=== PATIENT | female | born 1965 ===

== ENCOUNTER → 2021-10-08 16:39 | Outpatient (CLI) | payer OTHER, MEDICAID, SELFPAY ==
[2021-10-09 18:27] LABS: Alanine Aminotransferase 13 IU/L (<35); Albumin 4.7 g/dL (3.5-5.0); Albumin Globulin Ratio 1.5 (1.0-2.8); Alkaline Phosphatase 76 U/L (38-126); Aspartate Aminotransferase 25 IU/L (14-36); BUN Creatinine Ratio 13.7 (6-22); Bilirubin Total 1.1 mg/dL (0.2-1.3); Blood Urea Nitrogen 10 mg/dL (7-17); Calcium 10.3 mg/dL (8.4-10.2); Carbon Dioxide 33 mmol/L (22-32); Chloride 98 mmol/L (98-107); Estimated Glomerular Filt Rate > 60.0 mL/min (>60); Globulin 3.2 g/dL (1.7-4.1); Glucose 103 mg/dL (70-100); HEMOLYSIS < 15 (0-50); Potassium 3.9 mmol/L (3.4-5.1); Sodium 136 mmol/L (137-145); Total Protein 7.9 g/dL (6.3-8.2)
[2021-10-09 18:29] LABS: Add Manual Diff / Slide Review NO; Basophils Absolute Auto 0 /uL (0-100); Basophils Percent Auto 0.4 % (0-2); Eosinophils Absolute Auto 100 /uL (0-450); Eosinophils Percent Auto 0.7 % (2-4); Hematocrit 38.1 % (36-46); Hemoglobin 12.9 g/dL (12.0-16.0); Lymphocytes Absolute Auto 1700 /uL (1100-4500); Mean Corpuscular HGB Conc 33.8 % (30-36); Mean Corpuscular Hemoglobin 32.3 PG (26-34); Mean Corpuscular Volume 95.4 fL (80-100); Monocytes Absolute Auto 900 /uL (0-900); Monocytes Percent Auto 10.8 % (3-14); Neutrophils Absolute Auto 5300 /uL (1500-7000); Neutrophils Percent Auto 67.1 % (50-75); Platelet Count 430 X10^3/uL (150-400); Red Cell Distribution Width 13.7 % (11.6-14.8); White Blood Cell Count 7.9 X10^3/uL (4.5-11.0)
[2021-10-09 19:30] LABS: Ethanol (ETOH) < 10 mg/dL
== END ==
PROVIDERS: PCP Family Medicine; Referring Provider Physician Assistant; Visit Provider Physician Assistant
DX: R25.1 Tremor, unspecified
CPT/HCPCS: 80053; 80305; 80320; 85018; 85025

== ENCOUNTER 2022-03-16 11:22 | Emergency (ER) | payer OTHER, MEDICAID, SELFPAY ==
[2022-03-16 11:26] VITALS: BP 137/79; PULSE 80; RESP 18; TEMP 36.4; O2SAT 97; BMI 28.8
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
[2022-03-16 13:42] LABS: UR Morphine/Opiate cutoff 300 Negative (Negative); Ur Creatinine Normal (Normal); Ur Specific Gravity Normal (Normal); Urine Amphetamines Negative (Negative); Urine Barbiturates Negative (Negative); Urine Benzodiazepines Positive (Negative); Urine Cocaine Negative (Negative); Urine MDMA Negative (Negative); Urine Methadone Negative (Negative); Urine Methamphetamines Negative (Negative); Urine Oxycodone Negative (Negative); Urine Phencyclidine Negative (Negative); Urine Tetrahydrocannabinol Positive (Negative); Urine Tricyclic Antidepressant Negative (Negative); Urine pH Normal (Normal)
[2022-03-16 13:53] LABS: Add Manual Diff / Slide Review NO; Basophils Absolute Auto 0 /uL (0-100); Basophils Percent Auto 0.6 % (0-2); Eosinophils Absolute Auto 100 /uL (0-450); Eosinophils Percent Auto 1.3 % (2-4); Hematocrit 36.2 % (36-46); Hemoglobin 12.3 g/dL (12.0-16.0); Lymphocytes Absolute Auto 1600 /uL (1100-4500); Lymphocytes Percent Auto 28.8 % (25-40); Mean Corpuscular HGB Conc 34.1 % (30-36); Mean Corpuscular Hemoglobin 31.9 PG (26-34); Mean Corpuscular Volume 93.5 fL (80-100); Monocytes Absolute Auto 400 /uL (0-900); Monocytes Percent Auto 6.7 % (3-14); Neutrophils Absolute Auto 3400 /uL (1500-7000); Neutrophils Percent Auto 62.6 % (50-75); Platelet Count 305 X10^3/uL (150-400); Red Blood Cell Count 3.87 X10^6/uL (4.0-5.2); Red Cell Distribution Width 13.1 % (11.6-14.8); White Blood Cell Count 5.4 X10^3/uL (4.5-11.0)
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
[2022-03-16 14:12] LABS: Acetaminophen < 10 ug/mL (10-30); Alanine Aminotransferase 13 IU/L (<35); Albumin 4.6 g/dL (3.5-5.0); Albumin Globulin Ratio 1.5 (1.0-2.8); Alkaline Phosphatase 81 U/L (38-126); Aspartate Aminotransferase 30 IU/L (14-36); BUN Creatinine Ratio 14.9 (6-22); Bilirubin Total 0.7 mg/dL (0.2-1.3); Blood Urea Nitrogen 10 mg/dL (7-17); Calcium 9.6 mg/dL (8.4-10.2); Carbon Dioxide 29 mmol/L (22-32); Chloride 106 mmol/L (98-107); Estimated Glomerular Filt Rate > 60 mL/min (>60); Ethanol (ETOH) < 10 mg/dL; Glucose 101 mg/dL (70-100); HEMOLYSIS < 15 (0-50); Potassium 4.6 mmol/L (3.4-5.1); Salicylate < 1.0 mg/dL (<20); Sodium 141 mmol/L (137-145); Total Protein 7.6 g/dL (6.3-8.2)
[2022-03-16 14:28] LABS: Free T4, Direct Thyroxine 1.12 ng/dL (0.78-2.19)
[2022-03-16 14:42] LABS: Thyroid Stimulating Hormone 0.606 uIU/mL (0.47-4.68)
[2022-03-16 15:27] LABS: Lithium 0.9 mmol/L (0.6-1.2)
[2022-03-16] MEDS: ACETAMINOPHEN 325 MG TABLET 975 MG PO (15:37)
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
== END 2022-03-16 16:41 | disposition home or self-care (01) ==
PROVIDERS: Emergency Provider Emergency Medicine; PCP Physician Assistant
DX: S80.812A Abrasion, left lower leg, initial encounter (principal); S80.811A Abrasion, right lower leg, initial encounter
CPT/HCPCS: 36415; 80053; 80178; 80305; 80320; 80329; 81003; 81025; 84439; 84443; 85025; 99283; 99284; G0480

== ENCOUNTER 2022-05-22 20:50 | Emergency (ER) | payer OTHER, MEDICAID, SELFPAY ==
[2022-05-22 20:57] VITALS: BP 121/79; PULSE 84; RESP 16; TEMP 36.6; O2SAT 99; BMI 29.0
--- NOTE | 2022-05-22 21:10 | DI.CT.S_ITS ---
PROCEDURE: CT HEAD/BRAIN WO CON INDICATIONS: slurred words TECHNIQUE: Noncontrast 4.5 mm thick angled axial sections acquired from the foramen magnum to the vertex, with coronal and sagittal reformats. For radiation dose reduction, the following was used: automated exposure control, adjustment of mA and/or kV according to patient size. COMPARISON: None. FINDINGS: Image quality: Excellent. CSF spaces: Basal cisterns are patent. No extra-axial fluid collections. Ventricles are normal in size and shape. Brain: No midline shift. No intracranial masses or hemorrhage. Pitts-white matter interface is normal. Skull and face: Calvarium and visualized facial bones are intact, without suspicious lesions. Sinuses: Visualized sinuses demonstrate mucosal thickening within the left maxillary sinus posteriorly. IMPRESSION: 1. No acute intracranial abnormality. Dictated by: Gus Meier M.D. on 05/22/2022 at 21:31 Approved by: Gus Meier M.D. on 05/22/2022 at 21:33
[2022-05-22 21:38] LABS: Add Manual Diff / Slide Review NO; Basophils Absolute Auto 0 /uL (0-100); Basophils Percent Auto 0.5 % (0-2); Eosinophils Absolute Auto 100 /uL (0-450); Eosinophils Percent Auto 2.1 % (2-4); Hematocrit 35.9 % (36-46); Hemoglobin 12.1 g/dL (12.0-16.0); Lymphocytes Absolute Auto 2300 /uL (1100-4500); Lymphocytes Percent Auto 34.5 % (25-40); Mean Corpuscular HGB Conc 33.7 % (30-36); Mean Corpuscular Hemoglobin 31.9 PG (26-34); Mean Corpuscular Volume 94.5 fL (80-100); Monocytes Absolute Auto 700 /uL (0-900); Monocytes Percent Auto 10.6 % (3-14); Neutrophils Absolute Auto 3500 /uL (1500-7000); Neutrophils Percent Auto 52.3 % (50-75); Platelet Count 325 X10^3/uL (150-400); White Blood Cell Count 6.8 X10^3/uL (4.5-11.0)
[2022-05-22 21:39] LABS: Alanine Aminotransferase 14 IU/L (<35); Albumin 4.6 g/dL (3.5-5.0); Albumin Globulin Ratio 1.5 (1.0-2.8); Alkaline Phosphatase 77 U/L (38-126); Aspartate Aminotransferase 21 IU/L (14-36); Bilirubin Total 0.3 mg/dL (0.2-1.3); Blood Urea Nitrogen 13 mg/dL (7-17); Calcium 9.3 mg/dL (8.4-10.2); Carbon Dioxide 27 mmol/L (22-32); Chloride 103 mmol/L (98-107); Estimated Glomerular Filt Rate > 60 mL/min (>60); Globulin 3.1 g/dL (1.7-4.1); Glucose 78 mg/dL (70-100); HEMOLYSIS < 15 (0-50); Lipase 152 U/L (23-300); Sodium 140 mmol/L (137-145); Total Protein 7.7 g/dL (6.3-8.2)
[2022-05-22 21:45] VITALS: PULSE 99; RESP 20; O2SAT 97
[2022-05-22 22:00] LABS: UR Morphine/Opiate cutoff 300 Negative (Negative); Ur Creatinine Normal (Normal); Ur Specific Gravity Normal (Normal); Urine Amphetamines Negative (Negative); Urine Barbiturates Negative (Negative); Urine Benzodiazepines Positive (Negative); Urine Cocaine Negative (Negative); Urine MDMA Negative (Negative); Urine Methadone Negative (Negative); Urine Methamphetamines Negative (Negative); Urine Oxycodone Negative (Negative); Urine Phencyclidine Negative (Negative); Urine Tetrahydrocannabinol Negative (Negative); Urine Tricyclic Antidepressant Negative (Negative); Urine pH Normal (Normal)
[2022-05-22 22:01] LABS: COVID19 -Nasal RAPID Negative (Negative)
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
[2022-05-22 22:31] LABS: Ethanol (ETOH) 161 mg/dL
[2022-05-22 22:59] LABS: Lithium 1.2 mmol/L (0.6-1.2)
[2022-05-22 23:32] VITALS: BP 119/78; PULSE 90; RESP 20; O2SAT 98
== END 2022-05-22 23:34 | disposition home or self-care (01) ==
PROVIDERS: Emergency Provider Emergency Medicine; PCP Physician Assistant
DX: F10.129 Alcohol abuse with intoxication, unspecified (principal); Y90.6 Blood alcohol level of 120-199 mg/100 ml; Z20.822 Contact with and (suspected) exposure to COVID-19
CPT/HCPCS: 70450; 80053; 80178; 80305; 80320; 83690; 85025; 87635; 99282; 99284; C9803

== ENCOUNTER 2022-05-28 14:23 | Emergency (ER) | payer OTHER, MEDICAID, SELFPAY ==
[2022-05-28] VITALS (12 sets, daily range): BP systolic 106–150; BP diastolic 55–87; PULSE 73–106; RESP 15; TEMP 36.1; O2SAT 90–99; BMI 29.5
--- NOTE | 2022-05-28 15:15 | DI.RAD.S_ITS ---
PROCEDURE: XR CHEST 1V INDICATIONS: chest pain TECHNIQUE: One view of the chest was acquired. COMPARISON: None. FINDINGS: Surgical changes and devices: None. Lungs and pleura: Lungs are clear. No pleural effusions or pneumothorax. Mediastinum: Mediastinal contours appear normal. Heart size is normal. Bones and chest wall: No suspicious bony lesions. Overlying soft tissues appear unremarkable. IMPRESSION: No acute cardiopulmonary process demonstrated radiographically. Dictated by: Janes Salvador M.D. on 05/28/2022 at 15:40 Approved by: Janes Salvador M.D. on 05/28/2022 at 15:40
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
[2022-05-28 18:53] LABS: Add Manual Diff / Slide Review NO; Basophils Absolute Auto 0 /uL (0-100); Basophils Percent Auto 0.6 % (0-2); Eosinophils Absolute Auto 200 /uL (0-450); Eosinophils Percent Auto 2.4 % (2-4); Hematocrit 37.1 % (36-46); Hemoglobin 12.5 g/dL (12.0-16.0); Lymphocytes Absolute Auto 1700 /uL (1100-4500); Lymphocytes Percent Auto 24.9 % (25-40); Mean Corpuscular HGB Conc 33.6 % (30-36); Mean Corpuscular Hemoglobin 31.9 PG (26-34); Monocytes Absolute Auto 700 /uL (0-900); Monocytes Percent Auto 9.6 % (3-14); Neutrophils Absolute Auto 4300 /uL (1500-7000); Neutrophils Percent Auto 62.5 % (50-75); Platelet Count 371 X10^3/uL (150-400); Red Blood Cell Count 3.91 X10^6/uL (4.0-5.2); Red Cell Distribution Width 14.3 % (11.6-14.8); White Blood Cell Count 6.8 X10^3/uL (4.5-11.0)
--- NOTE | 2022-05-28 19:06 | DI.CT.S_ITS ---
PROCEDURE: CT HEAD/BRAIN WO CON INDICATIONS: recent falls, ongoing dizziness TECHNIQUE: Noncontrast 4.5 mm thick angled axial sections acquired from the foramen magnum to the vertex, with coronal and sagittal reformats. For radiation dose reduction, the following was used: automated exposure control, adjustment of mA and/or kV according to patient size. COMPARISON: [facility], CT, CT HEAD/BRAIN WO CON, 05/22/2022, 21:19. FINDINGS: Image quality: Excellent. CSF spaces: Basal cisterns are patent. No extra-axial fluid collections. Ventricles are normal in size and shape. Brain: No midline shift. No intracranial masses or hemorrhage. Pitts-white matter interface is normal. Skull and face: Calvarium and visualized facial bones are intact, without suspicious lesions. Sinuses: Visualized sinuses and mastoids are clear. IMPRESSION: No acute intracranial abnormality. Dictated by: Tony Caban M.D. on 05/28/2022 at 19:46 Approved by: Tony Caban M.D. on 05/28/2022 at 19:47
--- NOTE | 2022-05-28 19:11 | DI.CT.S_ITS ---
PROCEDURE: CT CERVICAL SPINE WO CON INDICATIONS: falls, etoh TECHNIQUE: Noncontrast 3 mm thick sections acquired from the skull base to the T4 level. Sagittal and coronal reformats were then constructed. For radiation dose reduction, the following was used: automated exposure control, adjustment of mA and/or kV according to patient size. COMPARISON: None. FINDINGS: Image quality: Excellent. Bones: No fractures or dislocations. Visualized superior ribs are intact. There is mild 2 mm grade 1 retrolisthesis of C5 on C6. Multilevel disc space narrowing degenerative endplate changes are seen. There is multilevel uncovertebral joint hypertrophy. Soft tissues: Prevertebral soft tissues are normal in thickness. No paravertebral hematomas. No apical pneumothoraces. A subcentimeter right thyroid nodule is incidentally noted, which requires no dedicated imaging follow-up. IMPRESSION: No acute cervical spine fracture or subluxation. Dictated by: Tony Caban M.D. on 05/28/2022 at 19:48 Approved by: Tony Cabna M.D. on 05/28/2022 at 19:50
--- NOTE | 2022-05-28 19:11 | DI.RAD.S_ITS ---
PROCEDURE: XR HIP W PEL IF DONE LT 2V INDICATIONS: falls, left hip pain TECHNIQUE: AP pelvis with lateral view of the left hip. COMPARISON: None. FINDINGS: Bones: No acute fractures or dislocations. Pelvic ring appears intact. No suspicious bony lesions. Soft tissues: The visualized bowel gas pattern is normal. No suspicious soft tissue calcifications. Degenerative changes are seen at the lower lumbar spine. IMPRESSION: No acute osseous abnormality. If clinical suspicion and/or symptoms persist, additional imaging with repeat plain films, or advanced imaging (e.g. CT, MRI) may be helpful for further assessment. Dictated by: Tony Caban M.D. on 05/28/2022 at 19:52 Approved by: Tony Caban M.D. on 05/28/2022 at 19:52
--- NOTE | 2022-05-28 19:13 | ED.DIZZY ---
HPI - Dizziness General Chief Complaint: Dizziness Stated Complaint: Body aches/dizzy Time Seen by Provider: 05/28/22 15:15 Source: patient Mode of arrival: Ambulatory History of Present Illness HPI Narrative: 56-year-old female nonsmoker with history of alcohol abuse, vitamin deficiencies, bipolar, mood disorder presents with a chief complaint of generalized body aches and dizziness. She is not a great historian but states that she is been having symptoms for about a year or so. She states that she is frequently dizzy and has a shuffling gait which has been present for quite some time. She states that she has been shaky and unsteady for over a year as well. She states she is been taking her medications as directed and stopped drinking in February, however she was here about 1 week ago and was found to have an alcohol level of 161. She denies any new head injury but is, as stated not a great historian. She denies any chest pain or shortness of breath. She has no nausea, vomiting or diarrhea. She states that for about the past week she is been having left hip pain. She denies any trouble controlling bowel or bladder. She denies any lower extremity weakness Related Data Home Medications Medication Instructions Recorded Confirmed albuterol sulfate 90 mcg/actuation 90 mcg inhalation DIRECTED 01/19/18 10/17/21 aerosol inhaler asthma diazepam 10 mg tablet 10 mg PO BID PRN 01/17/21 10/17/21 fluoxetine 20 mg capsule 20 mg PO DAILY 01/17/21 10/17/21 sennosides 8.6 mg tablet (senna) 8.6 mg PO DAILY PRN 01/17/21 10/17/21 trazodone 50 mg tablet 50 mg PO BEDTIME PRN 01/17/21 10/17/21 lithium carbonate 900 mg PO 10/08/21 10/17/21 Allergies Allergy/AdvReac Type Severity Reaction Status Date / Time No Known Drug Allergies Allergy Verified 05/28/22 14:37 pollen Allergy Mild Uncoded 05/22/22 21:00 Review of Systems Review of Systems Narrative: GENERAL: See HPI HEENT: Denies sinus pain, ear pain, sore throat, difficulty swallowing, dizziness. RESPIRATORY: Denies dyspnea, cough, wheezing, hemoptysis, sputum. CARDIOVASCULAR: Denies chest pain, palpitations, orthopnea, edema, GASTROINTESTINAL: Denies nausea, vomiting, abdominal pain, diarrhea, constipation, melena. : Denies dysuria, frequency, incontinence, hematuria, urinary retention. MUSCULOSKELETAL: See HPI SKIN: Denies rash, skin lesions, or other NEUROLOGIC: See HPI PSYCHIATRIC: No concerning psychosocial issues. 12 point review of systems is negative except for those stated above Patient History Medical History Ruptured appendicitis Surgical History H/O knee surgery History of appendectomy S/P scar revision Social History household members: family Smoking Status: Never smoker Smoking Status: Never smoker alcohol intake frequency: holidays/special occasions only Substance Use Type: marijuana Exam Narrative Exam Narrative: GENERAL: [56] year old patient appears stated age. Well-developed patient, in mild distress. GCS 14 (confusion) HEAD: Atraumatic. Normocephalic. EYES: Pupils equal round and reactive. Extraocular motions intact. No scleral icterus. No injection or drainage. ENT: Nose without bleeding, purulent drainage. Throat without erythema, tonsillar hypertrophy or exudate. Airway patent. NECK: Trachea midline. Non tender CARDIOVASCULAR: Regular rate and rhythm without murmurs, gallops, or rubs. RESPIRATORY: Clear to auscultation. Breath sounds equal bilaterally. No wheezes, rales, or rhonchi. GASTROINTESTINAL: Abdomen soft, non-tender, nondistended. EXTREMITIES: No edema or joint tenderness. BACK: Nontender without deformity or crepitance. No flank tenderness. NEURO: AOx3. Cranial nerves 2-12 grossly intact SKIN: No rash or erythema of visible areas Initial Vital Signs Initial Vital Signs: Vital Signs Temperature 97.0 F L 05/28/22 14:37 Pulse Rate 106 H 05/28/22 14:37 Respiratory Rate 15 05/28/22 14:37 Blood Pressure 118/71 05/28/22 14:37 Pulse Oximetry 97 05/28/22 14:37 Oxygen Delivery Method 05/28/22 14:37 Course Orders Ordered: ED Orders 05/28/22 19:52 COVID19 -Nasal RAPID/Pre-Proc Stat 05/28/22 21:08 Urine Drug Screen, Rapid Stat Discontinued Medications Thiamine HCl 200 mg/ Sodium (Chloride) 102 mls @ 408 mls/hr IV NOW ONE Stop: 05/28/22 19:13 Last Infusion: 05/28/22 20:23 Dose: 0 mls/hr Documented By: Admin: 05/28/22 19:48 Dose: 408 mls/hr Documented By: NR Vital Signs Vital signs: Vital Signs - 8 hr 05/28/22 20:30 05/28/22 21:00 05/28/22 21:07 Pulse Rate 81 78 73 Blood Pressure Pulse Oximetry 94 98 96 05/28/22 21:07 05/28/22 21:30 05/28/22 21:30 Pulse Rate 75 Blood Pressure 133/65 118/71 Pulse Oximetry 99 05/28/22 21:41 05/28/22 21:41 Pulse Rate 81 Blood Pressure 106/70 Pulse Oximetry 98 MDM - Dizziness Lab Data Result diagrams: 05/28/22 18:40 05/28/22 18:40 Labs: Lab Results 05/28/22 05/28/22 05/28/22 Range/Units 18:40 18:40 18:40 WBC 6.8 (4.5-11.0) X10^3/uL RBC 3.91 L (4.0-5.2) X10^6/uL Hgb 12.5 (12.0-16.0) g/dL Hct 37.1 (36-46) % MCV 95.0 (80-100) fL MCH 31.9 (26-34) PG MCHC 33.6 (30-36) % RDW 14.3 (11.6-14.8) % Plt Count 371 (150-400) X10^3/uL Neut % (Auto) 62.5 (50-75) % Lymph % (Auto) 24.9 L (25-40) % [place] % (Auto) 9.6 (3-14) % Eos % (Auto) 2.4 (2-4) % Baso % (Auto) 0.6 (0-2) % Neut # (Auto) 4300 (0955-0585) /uL Lymph # (Auto) 1700 (9791-4257) /uL [place] # (Auto) 700 (0-900) /uL Eos # (Auto) 200 (0-450) /uL Baso # (Auto) 0 (0-100) /uL Sodium 135 L (137-145) mmol/L Potassium 3.9 (3.4-5.1) mmol/L Chloride 102 (98-107) mmol/L Carbon Dioxide 26 (22-32) mmol/L BUN 13 (7-17) mg/dL Creatinine 0.69 (0.52-1.04) mg/dL Estimated GFR > 60 (>60) mL/min BUN/Creatinine Ratio 18.8 (6-22) Glucose 117 H (70-100) mg/dL Calcium 10.0 (8.4-10.2) mg/dL Total Bilirubin 0.8 (0.2-1.3) mg/dL AST 21 (14-36) IU/L ALT 13 (<35) IU/L Alkaline Phosphatase 88 (38-126) U/L Total Creatine Kinase 55 (30-135) U/L CK-MB (CK-2) TNP CK-MB (CK-2) Rel Index TNP Troponin I < 0.012 (0.01-0.034) ng/mL Total Protein 7.7 (6.3-8.2) g/dL Albumin 4.5 (3.5-5.0) g/dL Globulin 3.2 (1.7-4.1) g/dL Albumin/Globulin Ratio 1.4 (1.0-2.8) Lipase 76 (23-300) U/L U Opiates 300ng/mL cut (Negative) Ur Oxycodone Screen (Negative) Urine Methadone Screen (Negative) Ur Barbiturates Screen (Negative) U Tricyclic Antidepress (Negative) Ur Phencyclidine Scrn (Negative) Ur Amphetamines Screen (Negative) U Methamphetamines Scrn (Negative) Ur MDMA Scrn (Ecstasy) (Negative) U Benzodiazepines Scrn (Negative) [place] (0.6-1.2) mmol/L Urine Cocaine Screen (Negative) U Marijuana (THC) Screen (Negative) Ethyl Alcohol < 10 ( - 10) mg/dL SARS-CoV-2 (PCR) (Negative) 05/28/22 05/28/22 05/28/22 Range/Units 18:40 19:52 21:08 WBC (4.5-11.0) X10^3/uL RBC (4.0-5.2) X10^6/uL Hgb (12.0-16.0) g/dL Hct (36-46) % MCV (80-100) fL MCH (26-34) PG MCHC (30-36) % RDW (11.6-14.8) % Plt Count (150-400) X10^3/uL Neut % (Auto) (50-75) % Lymph % (Auto) (25-40) % [place] % (Auto) (3-14) % Eos % (Auto) (2-4) % Baso % (Auto) (0-2) % Neut # (Auto) (1532-5924) /uL Lymph # (Auto) (5891-8158) /uL [place] # (Auto) (0-900) /uL Eos # (Auto) (0-450) /uL Baso # (Auto) (0-100) /uL Sodium (137-145) mmol/L Potassium (3.4-5.1) mmol/L Chloride (98-107) mmol/L Carbon Dioxide (22-32) mmol/L BUN (7-17) mg/dL Creatinine (0.52-1.04) mg/dL Estimated GFR (>60) mL/min BUN/Creatinine Ratio (6-22) Glucose (70-100) mg/dL Calcium (8.4-10.2) mg/dL Total Bilirubin (0.2-1.3) mg/dL AST (14-36) IU/L ALT (<35) IU/L Alkaline Phosphatase (38-126) U/L Total Creatine Kinase (30-135) U/L CK-MB (CK-2) CK-MB (CK-2) Rel Index Troponin I (0.01-0.034) ng/mL Total Protein (6.3-8.2) g/dL Albumin (3.5-5.0) g/dL Globulin (1.7-4.1) g/dL Albumin/Globulin Ratio (1.0-2.8) Lipase (23-300) U/L U Opiates 300ng/mL cut Negative (Negative) Ur Oxycodone Screen Negative (Negative) Urine Methadone Screen Negative (Negative) Ur Barbiturates Screen Negative (Negative) U Tricyclic Antidepress Negative (Negative) Ur Phencyclidine Scrn Negative (Negative) Ur Amphetamines Screen Negative (Negative) U Methamphetamines Scrn Positive H (Negative) Ur MDMA Scrn (Ecstasy) Negative (Negative) U Benzodiazepines Scrn Positive H (Negative) [place] 1.4 H (0.6-1.2) mmol/L Urine Cocaine Screen Negative (Negative) U Marijuana (THC) Screen Negative (Negative) Ethyl Alcohol ( - 10) mg/dL SARS-CoV-2 (PCR) Negative (Negative) Urine Dip Bedside Urine Glucose Negative Bedside Urine Bilirubin - Negative Bedside Urine Ketone - Negative Urine Specific [place] 1.010 Bedside Urine Occult Blood - Negative Bedside Urine pH 7.5 Bedside Urine Protein - Negative Bedside Urine Urobilinogen - Negative Bedside Urine Nitrite - Negative Bedside Urine Leukocytes - Negative Esterase Imaging Data CT scan - head: Radiologist's Impression: Close Hip X-Ray (Signed) Tony Caban - 05/28/[address] (Signed) Tony Caban - 05/28/[address] (Signed) Tony Caban - 05/28/22 Chest X-Ray (Signed) Janes Salvador - 05/28/[address] (Signed) Gus Meier - 05/22/22 Ribs X-Ray 10/08/21 DI Result XR ribs LT min 3V w CXR1V 10/08/21 Telemetry Strips 01/19/18 Launch?[place] [address] CT Scan Report Signed Patient: Brenda Garcia MR#: [id number] : 1965 Acct:[id number] Age/Sex: 56 / F Date of Service: 05/28/22 Loc: ED Accession Number: [id number] ?? Procedure: CT head/brain wo con Ordering Provider: Avtar Silveira D.O. PROCEDURE:? CT HEAD/BRAIN WO CON ? INDICATIONS:? recent falls, ongoing dizziness ? TECHNIQUE:? Noncontrast 4.5 mm thick angled axial sections acquired from the foramen magnum to the vertex, with coronal and sagittal reformats.? For radiation dose reduction, the following was used:? automated exposure control, adjustment of mA and/or kV according to patient size.? ? COMPARISON:[facility], CT, CT HEAD/BRAIN WO CON, 05/22/2022, 21:19. ? FINDINGS:? Image quality:? Excellent.? ? CSF spaces:? Basal cisterns are patent.? No extra-axial fluid collections.? Ventricles are normal in size and shape.? ? Brain:? No midline shift.? No intracranial masses or hemorrhage.? Pitts-white matter interface is normal.? ? Skull and face:? Calvarium and visualized facial bones are intact, without suspicious lesions.? ? Sinuses:? Visualized sinuses and mastoids are clear.? ? IMPRESSION:? No acute intracranial abnormality. ? ? Dictated by: Tony Caban M.D. on 05/28/2022 at 19:46 ? ? Approved by: Tony Caban M.D. on 05/28/2022 at 19:47 ? CT - cervical spine: Radiologist's Impression: [place] [address] CT Scan Report Signed Patient: Brenda Garcia MR#: [id number] : 1965 Acct:[id number] Age/Sex: 56 / F Date of Service: 05/28/22 Loc: ED Accession Number: [id number] ?? Procedure: CT cervical spine wo con Ordering Provider: Avtar Silveira D.O. PROCEDURE:? CT CERVICAL SPINE WO CON ? INDICATIONS:? falls, etoh ? TECHNIQUE:? Noncontrast 3 mm thick sections acquired from the skull base to the T4 level.? Sagittal and coronal reformats were then constructed.? For radiation dose reduction, the following was used:? automated exposure control, adjustment of mA and/or kV according to patient size.? ? COMPARISON:? None. ? FINDINGS:? Image quality:? Excellent.? ? Bones:? No fractures or dislocations.? Visualized superior ribs are intact.? There is mild 2 mm grade 1 retrolisthesis of C5 on C6.? Multilevel disc space narrowing degenerative endplate changes are seen.? There is multilevel uncovertebral joint hypertrophy. ? Soft tissues:? Prevertebral soft tissues are normal in thickness.? No paravertebral hematomas.? No apical pneumothoraces.? A subcentimeter right thyroid nodule is incidentally noted, which requires no dedicated imaging follow-up. ? ? IMPRESSION:? No acute cervical spine fracture or subluxation. ? ? ? Dictated by: Tony Caban M.D. on 05/28/2022 at 19:48 ? ? Approved by: Tony Caban M.D. on 05/28/2022 at 19:50 ? Chest x-ray: Radiologist's Impression: [address] [address] [address] Scan Report Signed Patient: Brenda Garcia MR#: [id number] : 1965 Acct:[id number] Age/Sex: 56 / F Date of Service: 05/28/22 Loc: ED Accession Number: [id number] ?? Procedure: CT cervical spine wo con Ordering Provider: Avtar Silveira D.O. PROCEDURE:? CT CERVICAL SPINE WO CON ? INDICATIONS:? falls, etoh ? TECHNIQUE:? Noncontrast 3 mm thick sections acquired from the skull base to the T4 level.? Sagittal and coronal reformats were then constructed.? For radiation dose reduction, the following was used:? automated exposure control, adjustment of mA and/or kV according to patient size.? ? COMPARISON:? None. ? FINDINGS:? Image quality:? Excellent.? ? Bones:? No fractures or dislocations.? Visualized superior ribs are intact.? There is mild 2 mm grade 1 retrolisthesis of C5 on C6.? Multilevel disc space narrowing degenerative endplate changes are seen.? There is multilevel uncovertebral joint hypertrophy. ? Soft tissues:? Prevertebral soft tissues are normal in thickness.? No paravertebral hematomas.? No apical pneumothoraces.? A subcentimeter right thyroid nodule is incidentally noted, which requires no dedicated imaging follow-up. ? ? IMPRESSION:? No acute cervical spine fracture or subluxation. ? ? ? Dictated by: Tony Caban M.D. on 05/28/2022 at 19:48 ? ? Approved by: Tony Caban M.D. on 05/28/2022 at 19:50 ? MDM Narrative Medical decision making narrative: Multiple etiologies for patient's symptoms considered including: [Electrolyte abnormality versus anemia versus subdural hematoma versus other] Patient's symptoms improved over duration of stay with above-stated therapies. Findings and discharge diagnosis discussed with patient/family followed by verbalization of understanding Return precautions discussed with patient/family whom verbalize understanding. Discharge Plan Departure Patient Disposition: Home Clinical Impression: Dizziness Instructions: DI for Dizziness-Nonvertigo Activity Restrictions/Additional Instructions: *You have been diagnosed with [acute on chronic dizziness] *What to do: *Please continue to take your regular medications as directed. [ ] New medication prescriptions sent to your pharmacy: [ ] [ ] New medication written as a paper prescription [x] No new medications given *Please follow up with your primary care provider in 2-3 days, call for an appointment. Let them know you were seen in the Emergency Department and that we ask that you be seen in follow up. We will electronically transmit a record of today's note if your PCP is in our system *Return to Emergency Department if you should have any new, worsening or concerning symptoms, such as [fever greater than 101 F, shaking chills, worsening pain, persistent vomiting or other bothersome symptoms] Prescriptions: No Action albuterol sulfate [Ventolin HFA] 90 mcg/actuation HFA aerosol inhaler 90 mcg Inhalation DIRECTED trazodone 50 mg tablet 50 mg PO BEDTIME PRN sennosides [senna] 8.6 mg tablet 8.6 mg PO DAILY PRN diazepam 10 mg tablet 10 mg PO BID PRN fluoxetine 20 mg capsule 20 mg PO DAILY lithium carbonate 900 mg PO Rx Instructions: 600 morning 300 at night Visit Report Forms: Patient Portal/API
[2022-05-28 19:16] LABS: Alanine Aminotransferase 13 IU/L (<35); Albumin 4.5 g/dL (3.5-5.0); Albumin Globulin Ratio 1.4 (1.0-2.8); Alkaline Phosphatase 88 U/L (38-126); Aspartate Aminotransferase 21 IU/L (14-36); BUN Creatinine Ratio 18.8 (6-22); Bilirubin Total 0.8 mg/dL (0.2-1.3); Blood Urea Nitrogen 13 mg/dL (7-17); Carbon Dioxide 26 mmol/L (22-32); Chloride 102 mmol/L (98-107); Creatine Kinase 55 U/L (30-135); Estimated Glomerular Filt Rate > 60 mL/min (>60); Globulin 3.2 g/dL (1.7-4.1); Glucose 117 mg/dL (70-100); HEMOLYSIS < 15 (0-50); Lipase 76 U/L (23-300); Potassium 3.9 mmol/L (3.4-5.1); Sodium 135 mmol/L (137-145); Total Protein 7.7 g/dL (6.3-8.2)
[2022-05-28 19:25] LABS: Troponin I < 0.012 ng/mL (0.01-0.034)
[2022-05-28 19:40] LABS: Lithium 1.4 mmol/L (0.6-1.2)
[2022-05-28 19:43] LABS: Ethanol (ETOH) < 10 mg/dL
[2022-05-28] MEDS: THIAMINE 200 MG in SODIUM CHLORIDE 0.9% 100 ML 408 MG IV (19:48)
[2022-05-28 21:10] LABS: COVID19 -Nasal RAPID Negative (Negative)
--- NOTE | 2022-05-28 21:14 | PC.NURSE ---
Patient ambulated to bathroom with no assistance from enterprise business architect.
[2022-05-28 21:26] LABS: Ur Creatinine Normal (Normal); Ur Specific Gravity Normal (Normal); Urine pH Normal (Normal)
[2022-05-28 21:27] LABS: UR Morphine/Opiate cutoff 300 Negative (Negative); Urine Amphetamines Negative (Negative); Urine Barbiturates Negative (Negative); Urine Cocaine Negative (Negative); Urine MDMA Negative (Negative); Urine Methamphetamines Positive (Negative); Urine Phencyclidine Negative (Negative); Urine Tetrahydrocannabinol Negative (Negative)
[2022-05-28 21:28] LABS: Urine Benzodiazepines Positive (Negative); Urine Methadone Negative (Negative); Urine Oxycodone Negative (Negative); Urine Tricyclic Antidepressant Negative (Negative)
== END 2022-05-28 21:50 | disposition home or self-care (01) ==
PROVIDERS: Emergency Medicine; Emergency Provider Emergency Medicine
DX: R42 Dizziness and giddiness (principal); M25.552 Pain in left hip; R29.6 Repeated falls; Z20.822 Contact with and (suspected) exposure to COVID-19
CPT/HCPCS: 36415; 70450; 71045; 72125; 73502; 80053; 80178; 80305; 80320; 81003; 82550; 83690; 84484; 85025; 87635; 96360; 99284; C9803

== ENCOUNTER → 2023-09-30 09:51 | Outpatient (CLI) | payer OTHER, SELFPAY ==
--- NOTE | 2023-09-30 10:00 | DI.RAD.S_ITS ---
PROCEDURE: XR LUMBAR SPINE 2-3V INDICATIONS: HIP PAIN/SPINE PAIN TECHNIQUE: 3 views of the lumbar spine were acquired. COMPARISON: [facility], CR, XR HIP W PEL IF DONE FOREIGN 3TO4V, 09/30/2023, 10:06. FINDINGS: Bones: Uhvn-vy-bnwdadyg degenerative changes. Vertebral body heights are well maintained. There is no traumatic subluxation. Soft tissues: No suspicious calcifications. Sacroiliac degenerative changes also seen. IMPRESSION: [id number] lumbosacral degenerative changes. If there is high concern for further derangement, consider MRI evaluation. No acute radiographic abnormality. Dictated by: Antwan Irizarry M.D. on 09/30/2023 at 14:23 Approved by: Antwan Irizarry M.D. on 09/30/2023 at 14:24
--- NOTE | 2023-09-30 10:01 | DI.RAD.S_ITS ---
PROCEDURE: XR HIP W PEL IF DONE FOREIGN MIN 4V INDICATIONS: HIP AND SPINE PAIN TECHNIQUE: AP pelvis with lateral view(s) of the both hip(s). COMPARISON: [facility], [place], XR HIP W PEL IF DONE LT 2V, 05/28/2022, 19:23. FINDINGS: Bones: Mild hip and sacroiliac degenerative changes. No displaced fracture or dislocation is identified. Soft tissues: Pelvic calcifications are seen, probably phleboliths. IMPRESSION: Mild sacroiliac and femoral acetabular degenerative changes. If there is high concern for further derangement, consider MRI evaluation. Dictated by: Antwan Irizarry M.D. on 09/30/2023 at 14:25 Approved by: Antwan Irizarry M.D. on 09/30/2023 at 14:26
== END ==
PROVIDERS: Referring Provider Internal Medicine Cardiovascular Disease; Visit Provider Internal Medicine Cardiovascular Disease
DX: M47.817 Spondylosis without myelopathy or radiculopathy, lumbosacral region (principal); M54.50 Low back pain, unspecified; M25.559 Pain in unspecified hip
CPT/HCPCS: 72100; 73522